=== PATIENT | female | born 1960 | race Caucasian/White ===

== ENCOUNTER 2022-03-26 09:23 | Outpatient (CLI) | payer BC | END 2022-03-26 09:24 | disposition home or self-care (01) | LOC: MRI 09:23 | PROVIDERS: ATTEND Orthopaedic Surgery | DX: M47.26 Other spondylosis with radiculopathy, lumbar region (principal); M51.16 Intervertebral disc disorders with radiculopathy, lumbar region; M48.061 Spinal stenosis, lumbar region without neurogenic claudication; M48.07 Spinal stenosis, lumbosacral region; M51.37 Other intervertebral disc degeneration, lumbosacral region; M89.38 Hypertrophy of bone, other site | CPT/HCPCS: 72148 ==